=== PATIENT | female | born 1995 | race Caucasian/White ===

== ENCOUNTER 2022-11-24 19:07 | Day surgery (SDC) | payer OTHER, SELFPAY ==
[2022-11-24] VITALS (16 sets, daily range): BP systolic 109–142; BP diastolic 58–91; PULSE 69–99; RESP 16; TEMP 37.3; O2SAT 97–100; BMI 36.6
[2022-11-24 20:00] LABS: Add Manual Diff / Slide Review NO; Basophils Absolute Auto 100 /uL (0-100); Basophils Percent Auto 1.5 % (0-2); Eosinophils Absolute Auto 200 /uL (0-450); Eosinophils Percent Auto 2.9 % (2-4); Hematocrit 30.2 % (36-46); Hemoglobin 10.1 g/dL (12.0-16.0); Lymphocytes Absolute Auto 2600 /uL (1100-4500); Lymphocytes Percent Auto 30.4 % (25-40); Mean Corpuscular HGB Conc 33.5 % (30-36); Mean Corpuscular Hemoglobin 25.1 PG (26-34); Monocytes Absolute Auto 500 /uL (0-900); Monocytes Percent Auto 5.9 % (3-14); Neutrophils Absolute Auto 5100 /uL (1500-7000); Neutrophils Percent Auto 59.3 % (50-75); Platelet Count 387 X10^3/uL (150-400); Red Blood Cell Count 4.02 X10^6/uL (4.0-5.2); Red Cell Distribution Width 16.9 % (11.6-14.8); White Blood Cell Count 8.5 X10^3/uL (4.5-11.0)
[2022-11-24 20:23] LABS: BUN Creatinine Ratio 19.7 (6-22); Blood Urea Nitrogen 12 mg/dL (7-17); Calcium 8.5 mg/dL (8.4-10.2); Carbon Dioxide 24 mmol/L (22-32); Chloride 105 mmol/L (98-107); Estimated Glomerular Filt Rate > 60 mL/min (>60); Glucose 87 mg/dL (70-100); HEMOLYSIS < 15 (0-50); Potassium 3.7 mmol/L (3.4-5.1); Sodium 138 mmol/L (137-145)
[2022-11-24 20:44] LABS: Bacteria Urine None Seen; Culture Indicated Urine Cult Not Indicated; Mucus Urine 1+ (Negative); RBC Urine >100/HPF (0-5/HPF); Squamous Epithelial Cell Urine 1-5 /HPF (0-5/HPF); WBC Urine 0-1/HPF (0-5/HPF)
--- NOTE | 2022-11-24 21:06 | ED.PREGNANCY ---
HPI - <Darryn Duncan DO - Last Filed: 11/26/22 13:51> General Chief complaint: Vaginal Bleeding Stated complaint: miscarriage on , severe pain, clots, ble Time Seen by Provider: 11/24/22 19:20 Source: patient Mode of arrival: Ambulatory History of Present Illness HPI Narrative: 27-year-old female nonsmoker is a and presents with pelvic cramping and heavy bleeding over the course of the day. She had presented to her regularly scheduled 11 week appointment on November 14 and found out that she had an intrauterine demise at about the 7 week mnaoj. At that time she was given misoprostol to help pass products and was unsuccessful after 1 dose and got a repeat dose on November 20. She thought she had probably passed some products of conception on November 21 and then over the course of the day today she is been bleeding through a pad per hour. She last had food and clear liquids at 6:00 p.m. Related Data Home Medications Medication Instructions Recorded Confirmed oxycodone 5 mg tablet 2.5 mg 11/25/22 Allergies Allergy/AdvReac Type Severity Reaction Status Date / Time cephalexin [From Keflex] Allergy Intermediate Hives Verified 11/25/22 10:21 Review of Systems <DO Sea Payton Last Filed: 11/26/22 13:51> Review of Systems Narrative: GENERAL: Denies chills, fatigue, malaise, fever, sweats. HEENT: Denies sinus pain, ear pain, sore throat, difficulty swallowing, dizziness. RESPIRATORY: Denies dyspnea, cough, wheezing, hemoptysis, sputum. CARDIOVASCULAR: Denies chest pain, palpitations, orthopnea, edema, GASTROINTESTINAL: Denies nausea, vomiting, abdominal pain, diarrhea, constipation, melena. : See HPI MUSCULOSKELETAL: denies weakness, joint pain, or bony pain SKIN: Denies rash, skin lesions, or other NEUROLOGIC: Denies weakness, headache, numbness, change in speech, confusion, seizures, incoordination. PSYCHIATRIC: No concerning psychosocial issues. 12 point review of systems is negative except for those stated above Exam <DO Sea Payton Last Filed: 11/26/22 13:51> Narrative Exam Narrative: GENERAL: [27] year old patient appears stated age. Well-developed patient, in mild distress. HEAD: Atraumatic. Normocephalic. EYES: Pupils equal round and reactive. Extraocular motions intact. No scleral icterus. No injection or drainage. ENT: Nose without bleeding, purulent drainage. Throat without erythema, tonsillar hypertrophy or exudate. Airway patent. NECK: Trachea midline. Non tender CARDIOVASCULAR: Regular rate and rhythm without murmurs, gallops, or rubs. RESPIRATORY: Clear to auscultation. Breath sounds equal bilaterally. No wheezes, rales, or rhonchi. GASTROINTESTINAL: Abdomen soft, suprapubic tenderness, nondistended. EXTREMITIES: No edema or joint tenderness. BACK: Nontender without deformity or crepitance. No flank tenderness. NEURO: AOx3. SKIN: No rash or erythema of visible areas Initial Vital Signs Initial Vital Signs: Vital Signs Temperature 99.2 F 11/24/22 19:15 Pulse Rate 99 H 11/24/22 19:15 Respiratory Rate 16 11/24/22 19:15 Blood Pressure 125/64 11/24/22 19:15 Pulse Oximetry 100 11/24/22 19:15 Oxygen Delivery Method Room Air 11/24/22 19:15 <Anam Sharma DO - Last Filed: 11/25/22 09:52> Initial Vital Signs Initial Vital Signs: Vital Signs Temperature 99.2 F 11/24/22 19:15 Pulse Rate 99 H 11/24/22 19:15 Respiratory Rate 16 11/24/22 19:15 Blood Pressure 125/64 11/24/22 19:15 Pulse Oximetry 100 11/24/22 19:15 Oxygen Delivery Method Room Air 11/24/22 19:15 Course <Darryn Duncan, DO - Last Filed: 11/26/22 13:51> Orders Ordered: Discontinued Medications Albuterol (Albuterol 2.5 Mg/3 Ml Neb (Adult)) 2.5 mg INH NOW PRN PRN Reason: Coughing, Wheezing, Dyspnea Hydromorphone HCl (Hydromorphone 2 Mg Inj) 0 mg IV Q5M PRN PRN Reason: Pain, Moderate (4-6) Sodium Chloride (Normal Saline 0.9%) 1,000 mls @ 100 mls/hr IV CONT RUPALI Lactated Ringer's (Lactated Ringers) 1,000 mls @ 100 mls/hr IV CONT RUPALI Last Infusion: 11/25/22 12:41 Dose: 0 mls/hr Documented By: Admin: 11/25/22 10:35 Dose: 100 mls/hr Documented By: Clindamycin Phosphate (Cleocin) 600 mg in 50 mls @ 50 mls/hr IV NOW ONE Stop: 11/25/22 12:27 Last Infusion: 11/25/22 11:15 Dose: 0 mls/hr Documented By: Admin: 11/25/22 11:10 Dose: 50 mls/hr Documented By: EDER Ketorolac Tromethamine (Ketorolac 30 Mg/Ml Vial) 30 mg IV NOW ONE Stop: 11/25/22 11:37 Last Admin: 11/25/22 11:41 Dose: 30 mg Documented By: LELA Meperidine HCl (Meperidine 50 Mg/Ml Inj) 25 mg IV PACUNOW PRN PRN Reason: Moderate pain or shivering Metoclopramide HCl (Metoclopramide 10 Mg/2 Ml Inj) 10 mg IV NOW PRN PRN Reason: Nausea And Vomiting Ondansetron HCl (Ondansetron 4 Mg/2 Ml Inj) 4 mg IV NOW PRN PRN Reason: Nausea And Vomiting Oxycodone HCl (Oxycodone Ir 5 Mg Tablet) 5 mg PO PACUNOW PRN PRN Reason: Mild or moderate pain Last Admin: 11/25/22 12:06 Dose: 5 mg Documented By: LELA Reevaluation(s) Reevaluation #1: Pelvic exam performed, patient prior states that she still feels bleeding and cramping, perhaps it is slowed a bit but still certainly active. This exam is performed with patient permission and female nursing customer development representative at the bedside. Slow but constant dark blood via closed cervical os noted with clots Consultations Consultation #1: discussed with local beater operator, recommend transfer for D/C due to our inability to use OR Consultation #2: call to [facility]. Broach Trouble Shooter of Dr. Marte took info to relay to surgeon Time: 22:55 Vital Signs Vital signs: Vital Signs - 8 hr 11/25/22 02:00 11/25/22 02:30 11/25/22 03:52 Pulse Rate 74 73 Respiratory Rate Blood Pressure 109/67 Pulse Oximetry 95 95 Oxygen Delivery Method 11/25/22 03:52 11/25/22 04:00 11/25/22 04:00 Pulse Rate 74 69 Respiratory Rate Blood Pressure 102/58 L Pulse Oximetry 96 94 Oxygen Delivery Method 11/25/22 04:30 11/25/22 05:00 11/25/22 05:30 Pulse Rate 64 67 62 Respiratory Rate Blood Pressure Pulse Oximetry 95 98 95 Oxygen Delivery Method 11/25/22 06:00 11/25/22 06:00 11/25/22 06:30 Pulse Rate 69 62 Respiratory Rate Blood Pressure 116/57 L Pulse Oximetry 95 96 Oxygen Delivery Method 11/25/22 07:00 11/25/22 07:30 11/25/22 08:01 Pulse Rate 68 66 92 H Respiratory Rate 18 Blood Pressure 116/57 L Pulse Oximetry 95 96 93 Oxygen Delivery Method Room Air <Anam Sharma DO - Last Filed: 11/25/22 09:52> Orders Ordered: Discontinued Medications Albuterol (Albuterol 2.5 Mg/3 Ml Neb (Adult)) 2.5 mg INH NOW PRN PRN Reason: Coughing, Wheezing, Dyspnea Hydromorphone HCl (Hydromorphone 2 Mg Inj) 0 mg IV Q5M PRN PRN Reason: Pain, Moderate (4-6) Sodium Chloride (Normal Saline 0.9%) 1,000 mls @ 100 mls/hr IV CONT RUPALI Lactated Ringer's (Lactated Ringers) 1,000 mls @ 100 mls/hr IV CONT RUPLAI Last Infusion: 11/25/22 12:41 Dose: 0 mls/hr Documented By: Admin: 11/25/22 10:35 Dose: 100 mls/hr Documented By: MS Clindamycin Phosphate (Cleocin) 600 mg in 50 mls @ 50 mls/hr IV NOW ONE Stop: 11/25/22 12:27 Last Infusion: 11/25/22 11:15 Dose: 0 mls/hr Documented By: Admin: 11/25/22 11:10 Dose: 50 mls/hr Documented By: BL Ketorolac Tromethamine (Ketorolac 30 Mg/Ml Vial) 30 mg IV NOW ONE Stop: 11/25/22 11:37 Last Admin: 11/25/22 11:41 Dose: 30 mg Documented By: AK Meperidine HCl (Meperidine 50 Mg/Ml Inj) 25 mg IV PACUNOW PRN PRN Reason: Moderate pain or shivering Metoclopramide HCl (Metoclopramide 10 Mg/2 Ml Inj) 10 mg IV NOW PRN PRN Reason: Nausea And Vomiting Ondansetron HCl (Ondansetron 4 Mg/2 Ml Inj) 4 mg IV NOW PRN PRN Reason: Nausea And Vomiting Oxycodone HCl (Oxycodone Ir 5 Mg Tablet) 5 mg PO PACUNOW PRN PRN Reason: Mild or moderate pain Last Admin: 11/25/22 12:06 Dose: 5 mg Documented By: LELA Vital Signs Vital signs: Vital Signs - 8 hr 11/25/22 02:00 11/25/22 02:30 11/25/22 03:52 Pulse Rate 74 73 Respiratory Rate Blood Pressure 109/67 Pulse Oximetry 95 95 Oxygen Delivery Method 11/25/22 03:52 11/25/22 04:00 11/25/22 04:00 Pulse Rate 74 69 Respiratory Rate Blood Pressure 102/58 L Pulse Oximetry 96 94 Oxygen Delivery Method 11/25/22 04:30 11/25/22 05:00 11/25/22 05:30 Pulse Rate 64 67 62 Respiratory Rate Blood Pressure Pulse Oximetry 95 98 95 Oxygen Delivery Method 11/25/22 06:00 11/25/22 06:00 11/25/22 06:30 Pulse Rate 69 62 Respiratory Rate Blood Pressure 116/57 L Pulse Oximetry 95 96 Oxygen Delivery Method 11/25/22 07:00 11/25/22 07:30 11/25/22 08:01 Pulse Rate 68 66 92 H Respiratory Rate 18 Blood Pressure 116/57 L Pulse Oximetry 95 96 93 Oxygen Delivery Method Room Air MDM - OB/Uterine Contractions <Darryn Duncan DO - Last Filed: 11/26/22 13:51> Lab Data 11/25/22 07:45 11/24/22 19:45 Labs: Lab Results 11/24/22 11/24/22 11/24/22 Range/Units 19:45 19:45 19:45 WBC 8.5 (4.5-11.0) X10^3/uL RBC 4.02 (4.0-5.2) X10^6/uL Hgb 10.1 L (12.0-16.0) g/dL Hct 30.2 L (36-46) % MCV 75.0 L (80-100) fL MCH 25.1 L (26-34) PG MCHC 33.5 (30-36) % RDW 16.9 H (11.6-14.8) % Plt Count 387 (150-400) X10^3/uL Neut % (Auto) 59.3 (50-75) % Lymph % (Auto) 30.4 (25-40) % [place] % (Auto) 5.9 (3-14) % Eos % (Auto) 2.9 (2-4) % Baso % (Auto) 1.5 (0-2) % Neut # (Auto) 5100 (1263-9068) /uL Lymph # (Auto) 2600 (4095-1520) /uL [place] # (Auto) 500 (0-900) /uL Eos # (Auto) 200 (0-450) /uL Baso # (Auto) 100 (0-100) /uL Sodium (137-145) mmol/L Potassium (3.4-5.1) mmol/L Chloride (98-107) mmol/L Carbon Dioxide (22-32) mmol/L BUN (7-17) mg/dL Creatinine (0.52-1.04) mg/dL Estimated GFR (>60) mL/min BUN/Creatinine Ratio (6-22) Glucose (70-100) mg/dL Calcium (8.4-10.2) mg/dL HCG, Quant 9161.0 mIU/mL Urine RBC (0-5/HPF) Urine WBC (0-5/HPF) Ur Squamous Epith Cells (0-5/HPF) Urine Bacteria (None) Urine Mucus (Negative) Ur Culture Indicated? SARS-CoV-2 (PCR) (Negative) Blood Type AB Positive Antibody Screen 11/24/22 11/24/22 11/24/22 Range/Units 19:45 20:16 22:45 WBC (4.5-11.0) X10^3/uL RBC (4.0-5.2) X10^6/uL Hgb 9.4 L (12.0-16.0) g/dL Hct 28.2 L (36-46) % MCV (80-100) fL MCH (26-34) PG MCHC (30-36) % RDW (11.6-14.8) % Plt Count (150-400) X10^3/uL Neut % (Auto) (50-75) % Lymph % (Auto) (25-40) % [place] % (Auto) (3-14) % Eos % (Auto) (2-4) % Baso % (Auto) (0-2) % Neut # (Auto) (1786-5461) /uL Lymph # (Auto) (8263-1753) /uL [place] # (Auto) (0-900) /uL Eos # (Auto) (0-450) /uL Baso # (Auto) (0-100) /uL Sodium 138 (137-145) mmol/L Potassium 3.7 (3.4-5.1) mmol/L Chloride 105 (98-107) mmol/L Carbon Dioxide 24 (22-32) mmol/L BUN 12 (7-17) mg/dL Creatinine 0.61 (0.52-1.04) mg/dL Estimated GFR > 60 (>60) mL/min BUN/Creatinine Ratio 19.7 (6-22) Glucose 87 (70-100) mg/dL Calcium 8.5 (8.4-10.2) mg/dL HCG, Quant mIU/mL Urine RBC >100/hpf H (0-5/HPF) Urine WBC 0-1/hpf (0-5/HPF) Ur Squamous Epith Cells 1-5 /hpf (0-5/HPF) Urine Bacteria None seen (None) Urine Mucus 1+ H (Negative) Ur Culture Indicated? Cult not indicated SARS-CoV-2 (PCR) (Negative) Blood Type Antibody Screen 11/24/22 11/25/22 11/25/22 Range/Units 22:45 07:45 08:56 WBC (4.5-11.0) X10^3/uL RBC (4.0-5.2) X10^6/uL Hgb 8.9 L (12.0-16.0) g/dL Hct 27.1 L (36-46) % MCV (80-100) fL MCH (26-34) PG MCHC (30-36) % RDW (11.6-14.8) % Plt Count (150-400) X10^3/uL Neut % (Auto) (50-75) % Lymph % (Auto) (25-40) % [place] % (Auto) (3-14) % Eos % (Auto) (2-4) % Baso % (Auto) (0-2) % Neut # (Auto) (4332-8921) /uL Lymph # (Auto) (9329-0729) /uL [place] # (Auto) (0-900) /uL Eos # (Auto) (0-450) /uL Baso # (Auto) (0-100) /uL Sodium (137-145) mmol/L Potassium (3.4-5.1) mmol/L Chloride (98-107) mmol/L Carbon Dioxide (22-32) mmol/L BUN (7-17) mg/dL Creatinine (0.52-1.04) mg/dL Estimated GFR (>60) mL/min BUN/Creatinine Ratio (6-22) Glucose (70-100) mg/dL Calcium (8.4-10.2) mg/dL HCG, Quant mIU/mL Urine RBC (0-5/HPF) Urine WBC (0-5/HPF) Ur Squamous Epith Cells (0-5/HPF) Urine Bacteria (None) Urine Mucus (Negative) Ur Culture Indicated? SARS-CoV-2 (PCR) Negative (Negative) Blood Type AB Positive Antibody Screen Negative Urine Dip Bedside Urine Glucose Negative Bedside Urine Bilirubin - Negative Bedside Urine Ketone - Negative Urine Specific [place] 1.030 Bedside Urine Occult Blood +++ Bedside Urine pH 6.0 Bedside Urine Protein + 30 Bedside Urine Urobilinogen - Negative Bedside Urine Nitrite - Negative Bedside Urine Leukocytes - Negative Esterase <Anam Sharma, DO - Last Filed: 11/25/22 09:52> Lab Data Labs: Lab Results 11/24/22 11/24/22 11/24/22 Range/Units 19:45 19:45 19:45 WBC 8.5 (4.5-11.0) X10^3/uL RBC 4.02 (4.0-5.2) X10^6/uL Hgb 10.1 L (12.0-16.0) g/dL Hct 30.2 L (36-46) % MCV 75.0 L (80-100) fL MCH 25.1 L (26-34) PG MCHC 33.5 (30-36) % RDW 16.9 H (11.6-14.8) % Plt Count 387 (150-400) X10^3/uL Neut % (Auto) 59.3 (50-75) % Lymph % (Auto) 30.4 (25-40) % [place] % (Auto) 5.9 (3-14) % Eos % (Auto) 2.9 (2-4) % Baso % (Auto) 1.5 (0-2) % Neut # (Auto) 5100 (2758-7118) /uL Lymph # (Auto) 2600 (1946-2003) /uL [place] # (Auto) 500 (0-900) /uL Eos # (Auto) 200 (0-450) /uL Baso # (Auto) 100 (0-100) /uL Sodium (137-145) mmol/L Potassium (3.4-5.1) mmol/L Chloride (98-107) mmol/L Carbon Dioxide (22-32) mmol/L BUN (7-17) mg/dL Creatinine (0.52-1.04) mg/dL Estimated GFR (>60) mL/min BUN/Creatinine Ratio (6-22) Glucose (70-100) mg/dL Calcium (8.4-10.2) mg/dL HCG, Quant 9161.0 mIU/mL Urine RBC (0-5/HPF) Urine WBC (0-5/HPF) Ur Squamous Epith Cells (0-5/HPF) Urine Bacteria (None) Urine Mucus (Negative) Ur Culture Indicated? SARS-CoV-2 (PCR) (Negative) Blood Type AB Positive Antibody Screen 11/24/22 11/24/22 11/24/22 Range/Units 19:45 20:16 22:45 WBC (4.5-11.0) X10^3/uL RBC (4.0-5.2) X10^6/uL Hgb 9.4 L (12.0-16.0) g/dL Hct 28.2 L (36-46) % MCV (80-100) fL MCH (26-34) PG MCHC (30-36) % RDW (11.6-14.8) % Plt Count (150-400) X10^3/uL Neut % (Auto) (50-75) % Lymph % (Auto) (25-40) % [place] % (Auto) (3-14) % Eos % (Auto) (2-4) % Baso % (Auto) (0-2) % Neut # (Auto) (0058-3515) /uL Lymph # (Auto) (6421-1630) /uL [place] # (Auto) (0-900) /uL Eos # (Auto) (0-450) /uL Baso # (Auto) (0-100) /uL Sodium 138 (137-145) mmol/L Potassium 3.7 (3.4-5.1) mmol/L Chloride 105 (98-107) mmol/L Carbon Dioxide 24 (22-32) mmol/L BUN 12 (7-17) mg/dL Creatinine 0.61 (0.52-1.04) mg/dL Estimated GFR > 60 (>60) mL/min BUN/Creatinine Ratio 19.7 (6-22) Glucose 87 (70-100) mg/dL Calcium 8.5 (8.4-10.2) mg/dL HCG, Quant mIU/mL Urine RBC >100/hpf H (0-5/HPF) Urine WBC 0-1/hpf (0-5/HPF) Ur Squamous Epith Cells 1-5 /hpf (0-5/HPF) Urine Bacteria None seen (None) Urine Mucus 1+ H (Negative) Ur Culture Indicated? Cult not indicated SARS-CoV-2 (PCR) (Negative) Blood Type Antibody Screen 11/24/22 11/25/22 11/25/22 Range/Units 22:45 07:45 08:56 WBC (4.5-11.0) X10^3/uL RBC (4.0-5.2) X10^6/uL Hgb 8.9 L (12.0-16.0) g/dL Hct 27.1 L (36-46) % MCV (80-100) fL MCH (26-34) PG MCHC (30-36) % RDW (11.6-14.8) % Plt Count (150-400) X10^3/uL Neut % (Auto) (50-75) % Lymph % (Auto) (25-40) % [place] % (Auto) (3-14) % Eos % (Auto) (2-4) % Baso % (Auto) (0-2) % Neut # (Auto) (9224-6447) /uL Lymph # (Auto) (3917-3992) /uL [place] # (Auto) (0-900) /uL Eos # (Auto) (0-450) /uL Baso # (Auto) (0-100) /uL Sodium (137-145) mmol/L Potassium (3.4-5.1) mmol/L Chloride (98-107) mmol/L Carbon Dioxide (22-32) mmol/L BUN (7-17) mg/dL Creatinine (0.52-1.04) mg/dL Estimated GFR (>60) mL/min BUN/Creatinine Ratio (6-22) Glucose (70-100) mg/dL Calcium (8.4-10.2) mg/dL HCG, Quant mIU/mL Urine RBC (0-5/HPF) Urine WBC (0-5/HPF) Ur Squamous Epith Cells (0-5/HPF) Urine Bacteria (None) Urine Mucus (Negative) Ur Culture Indicated? SARS-CoV-2 (PCR) Negative (Negative) Blood Type AB Positive Antibody Screen Negative Urine Dip Bedside Urine Glucose Negative Bedside Urine Bilirubin - Negative Bedside Urine Ketone - Negative Urine Specific [place] 1.030 Bedside Urine Occult Blood +++ Bedside Urine pH 6.0 Bedside Urine Protein + 30 Bedside Urine Urobilinogen - Negative Bedside Urine Nitrite - Negative Bedside Urine Leukocytes - Negative Esterase MDM Narrative Medical decision making narrative: Dr sharma: Received turned over. We patient's history and physical and introduced myself to the patient and performed my own independent exam. She is had a steadily declining hemoglobin and hematocrit. A type and screen was ordered however she is not at the point that would require transfusion although we will continue to monitor this. She is Rh positive. Ultrasound does show retained products of conception. Initially there was somewhat of a delay because of issues with the operating room at this facility. We were initially under the impression that the patient would need to be transferred have a D&C performed. Upon assumption of care by myself it was clarified that the patient can have a procedure here at this facility. I did discuss the case with Dr. Angel on-call for house registry rn. Evaluated the patient in the emergency department. I did discuss the findings of the ultrasound in the blood work with the patient. I informed her that we would be able to safely take care of her here at this facility. She expressed understanding and agreement with plan. We will admit for further evaluation and treatment. Discharge Plan Departure Patient Disposition: Admitted to Surgery Clinical Impression: Incomplete miscarriage, Anemia
--- NOTE | 2022-11-24 21:09 | DI.US.S_ITS ---
PROCEDURE: US PELVIC COMPLETE INDICATIONS: HEAVY BLEEDING, CRAMPING; RECENT SAB TECHNIQUE: Real-time scanning was performed of the pelvic organs, with image documentation. Additional endovaginal scanning was necessary due to incomplete visualization of the adnexal and endometrial structures by transabdominal scanning. COMPARISON: None. FINDINGS: Uterus: Uterus is anteverted and measures 9.8 x 5.1 x 6.6 cm. The endometrium is thickened and heterogeneous in appearance, measuring up to 2.3 cm. There is internal vascularity on color Doppler interrogation. There is a heterogeneous masslike filling defect within the cervix without internal vascularity on color Doppler interrogation. Ovaries: The right ovary measures 1.5 x 2.7 x 1.2 cm cm, with a calculated ovarian volume of 2.4 cc. The left ovary measures 1.8 x 2.9 x 2.2 cm, with a calculated ovarian volume of 6.0 cc. There is an anechoic simple cyst within the left ovary measuring up to 2.3 cm suggestive of a follicular cyst. No adnexal masses. Other: No pathologic free abdominal or pelvic fluid. IMPRESSION: 1. Heterogeneous thickening of the endometrium with internal vascularity highly suspicious for retained products of conception. 2. Heterogeneous filling defect within the cervix without internal vascularity. The findings are suggestive of clot but are nonspecific. Recommend correlation with clinical exam. We strive to produce accurate, complete, and clear reports of imaging services. To assist us in improving patient care, this report was composed using standard report templates and voice recognition software. Therefore, it may contain abnormal punctuation, insertions and/or omissions. Occasional wrong-word or sound-alike substitutions may occur. Though we review the report and make efforts to correct it, we do recommend that the report be read carefully in proper context to recognize any text inaccuracies. Dictated by: Nicholas Sotelo M.D. on 11/24/2022 at 21:58 Approved by: Nicholas Sotelo M.D. on 11/24/2022 at 22:03
[2022-11-24 22:58] LABS: Hematocrit 28.2 % (36-46); Hemoglobin 9.4 g/dL (12.0-16.0)
[2022-11-24 23:30] LABS: COVID19 -Nasal RAPID Negative (Negative)
[2022-11-25] VITALS (28 sets, daily range): BP systolic 100–136; BP diastolic 41–78; PULSE 57–92; RESP 9–22; TEMP 36.2–36.3; O2SAT 93–99; BMI 36.6
--- NOTE | 2022-11-25 | PATH_ITS ---
[facility] Accession Number: [id number] No. of containers..01 Tissue . 01 Material submitted: . product of conception - PRODUCTS OF CONCEPTION . 01 Clinical history: . MISCARRIAGE ON MORN, SEVERE PAIN, CLOTS, BLE... . 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 Gestational endometrium, implantation site changes, and decidua. Negative for malignancy. MRV 12/04/2022 1835 Local . 01 Comment: The degenerated chorionic villi are abnormally enlarged and hydropic with complete cistern formation and rare foci of trophoblastic hyperplasia. An *immunostain to p57 is performed on block A1, with the control stained appropriately, and is negative on the cytotrophoblasts and stromal cells. 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 . * This test was developed and its performance characteristics determined by [employer]. It has not been cleared or approved by the U.S. Food and Drug Administration. The FDA has determined that such clearance or approval is not necessary. This test is used for clinical purposes. It should not be regarded as investigational or for research. . 01 Electronically signed: . Mariam Syed MD, Pathologist NPI- [id number] . 01 Gross description: . The specimen is received in formalin labeled with the patient's name, , and products of conception, and consists multiple rider spongy soft tissue fragments admixed with hemorrhagic material aggregating to 7.8 x 6.9 x 2.3 cm. No tissue is grossly identified. Supply Chain Director sections are submitted in cassettes A1-A2. ([id number]) Additional senior sales representative sections are submitted in cassettes A3-A6. ([id number]) /NILAM 12/03/2022 1820 Local . 01 Pathologist provided ICD-10: O03.80 . 01 CPT . 109075, L06943 Specimen Comment: A courtesy copy of this report has been sent to [phone] Performed at: 01 [facility] [address] [place] [address], [place], [place] [id number] MD Nicholas Vinson MD Phone: [phone]
--- NOTE | 2022-11-25 05:59 | PC.NURSE ---
Waiting on Ross to call back to see if procedure can be done out Pt this AM
[2022-11-25 07:53] LABS: Hematocrit 27.1 % (36-46); Hemoglobin 8.9 g/dL (12.0-16.0)
--- NOTE | 2022-11-25 08:25 | PC.NURSE ---
Wild hernandez @[facility] Stephanie, called @ [phone] wanted to verify if pt. was able to arrive POV, confirmed with pt. she is able to and has a friend with her bedside who can drive her. Confirmed with Stephanie, notified we are waiting update on our OR situation before we d/c pt. and will call with an update. Stephanie stated that if pt. is having procedure at [facility] will need to arrive by 1300 through main entrance and head to day surgery.
--- NOTE | 2022-11-25 09:57 | PM.PREOP ---
Pre-operative Note COVID-19 Criteria for continued procedure: Possibility delay results in more complex future surgery or treatment Interval Note History & Physical reviewed/Exam performed by Physician: Yes Changes to H&P: No
--- NOTE | 2022-11-25 09:59 | PM.GYNHP.1 ---
History of Present Illness History of Present Illness Reason for admission: incomplete Narrative: Jen Hernandez is a 27 year old female TAB 1 who on her 1st OB visit was found to have a missed A/B. She was given medication to try to complete the miscarriage but the patient has had heavy bleeding that continued and arrived in the emergency room for evaluation. [facility] Social History Smoking Status: Never smoker Comment: Patient denies any significant medical history Review of Systems Review of Systems Narrative: Patient denies headaches. She denies fevers. She is had heavy bleeding with clots. No problems urinating. No problems with constipation or diarrhea. Exam Vital Signs (past 8 hours): - 11/25/22 02:00 11/25/22 02:30 11/25/22 03:52 Pulse Rate 74 73 Respiratory Rate Blood Pressure 109/67 Pulse Oximetry 95 95 Oxygen Delivery Method 11/25/22 03:52 11/25/22 04:00 11/25/22 04:00 Pulse Rate 74 69 Respiratory Rate Blood Pressure 102/58 L Pulse Oximetry 96 94 Oxygen Delivery Method 11/25/22 04:30 11/25/22 05:00 11/25/22 05:30 Pulse Rate 64 67 62 Respiratory Rate Blood Pressure Pulse Oximetry 95 98 95 Oxygen Delivery Method 11/25/22 06:00 11/25/22 06:00 11/25/22 06:30 Pulse Rate 69 62 Respiratory Rate Blood Pressure 116/57 L Pulse Oximetry 95 96 Oxygen Delivery Method 11/25/22 07:00 11/25/22 07:30 11/25/22 08:01 Pulse Rate 68 66 92 H Respiratory Rate 18 Blood Pressure 116/57 L Pulse Oximetry 95 96 93 Oxygen Delivery Method Room Air Oxygen Delivery Method Room Air Narrative Exam Narrative: HEENT exam within normal limits. Lungs are clear to auscultation percussion. Heart is regular rate and rhythm no S3-S4 or murmurs. No thyromegaly. Abdomen is soft, nontender with no palpable organomegaly. Pelvic exam not performed. Extremities without edema and nontender. Objective Imaging US - abdomen: Radiologist's impression: Uterus:? Uterus is anteverted and measures 9.8 x 5.1 x 6.6 cm.? The endometrium is thickened and heterogeneous in appearance, measuring up to 2.3 cm.? There is internal vascularity on color Doppler interrogation.? There is a heterogeneous masslike filling defect within the cervix without internal vascularity on color Doppler interrogation.? ? Ovaries:? The right ovary measures 1.5 x 2.7 x 1.2 cm cm, with a calculated ovarian volume of 2.4 cc. The left ovary measures 1.8 x 2.9 x 2.2 cm, with a calculated ovarian volume of 6.0 cc.? There is an anechoic simple cyst within the left ovary measuring up to 2.3 cm suggestive of a follicular cyst.? No adnexal masses. ? Other:? No pathologic free abdominal or pelvic fluid. ? ? IMPRESSION:? ? 1. Heterogeneous thickening of the endometrium with internal vascularity highly suspicious for retained products of conception. ? 2. Heterogeneous filling defect within the cervix without internal vascularity.? The findings are suggestive of clot but are nonspecific.? Recommend correlation with clinical exam. ? ? Labs 11/25/22 07:45 11/24/22 19:45 Labs: Laboratory Results - last 24 hr 11/24/22 11/24/22 11/24/22 19:45 19:45 19:45 WBC 8.5 RBC 4.02 Hgb 10.1 L Hct 30.2 L MCV 75.0 L MCH 25.1 L MCHC 33.5 RDW 16.9 H Plt Count 387 Neut % (Auto) 59.3 Lymph % (Auto) 30.4 [place] % (Auto) 5.9 Eos % (Auto) 2.9 Baso % (Auto) 1.5 Neut # (Auto) 5100 Lymph # (Auto) 2600 [place] # (Auto) 500 Eos # (Auto) 200 Baso # (Auto) 100 Sodium Potassium Chloride Carbon Dioxide BUN Creatinine Estimated GFR BUN/Creatinine Ratio Glucose Calcium HCG, Quant 9161.0 Urine RBC Urine WBC Ur Squamous Epith Cells Urine Bacteria Urine Mucus Ur Culture Indicated? SARS-CoV-2 (PCR) Blood Type AB Positive Antibody Screen 11/24/22 11/24/22 11/24/22 19:45 20:16 22:45 WBC RBC Hgb 9.4 L Hct 28.2 L MCV MCH MCHC RDW Plt Count Neut % (Auto) Lymph % (Auto) [place] % (Auto) Eos % (Auto) Baso % (Auto) Neut # (Auto) Lymph # (Auto) [place] # (Auto) Eos # (Auto) Baso # (Auto) Sodium 138 Potassium 3.7 Chloride 105 Carbon Dioxide 24 BUN 12 Creatinine 0.61 Estimated GFR > 60 BUN/Creatinine Ratio 19.7 Glucose 87 Calcium 8.5 HCG, Quant Urine RBC >100/hpf H Urine WBC 0-1/hpf Ur Squamous Epith Cells 1-5 /hpf Urine Bacteria None seen Urine Mucus 1+ H Ur Culture Indicated? Cult not indicated SARS-CoV-2 (PCR) Blood Type Antibody Screen 11/24/22 11/25/22 11/25/22 22:45 07:45 08:56 WBC RBC Hgb 8.9 L Hct 27.1 L MCV MCH MCHC RDW Plt Count Neut % (Auto) Lymph % (Auto) [place] % (Auto) Eos % (Auto) Baso % (Auto) Neut # (Auto) Lymph # (Auto) [place] # (Auto) Eos # (Auto) Baso # (Auto) Sodium Potassium Chloride Carbon Dioxide BUN Creatinine Estimated GFR BUN/Creatinine Ratio Glucose Calcium HCG, Quant Urine RBC Urine WBC Ur Squamous Epith Cells Urine Bacteria Urine Mucus Ur Culture Indicated? SARS-CoV-2 (PCR) Negative Blood Type AB Positive Antibody Screen Negative Assessment & Plan Assessment and plan (1) Incomplete miscarriage: Status: Acute (2) Anemia: Status: Acute Assessment & Plan narrative: Patient was given options of continue to monitor for her to complete her , medication to complete her , suction D&C. Patient it would like to proceed with suction D&C. Consent form was reviewed with the patient. Risk of reaction to medication or anesthesia, infection, perforation of the uterus that could require additional surgery, bleeding enough to require blood transfusion. Consent form signed and questions answered. Time Spent With Patient Time with patient: less than 30 minutes Critical Care time: I spent a total of [] minutes of critical care time on this patient's care today; this time is exclusive of procedural time.
[2022-11-25] MEDS: LACTATED RINGERS 1,000 ML 100 ML IV (10:35)
[2022-11-25] MEDS: CLINDAMYCIN 600 MG/50 ML PIGGYBACK 50 MG IV (11:10)
--- NOTE | 2022-11-25 11:31 | PM.OP.1 ---
Operative Date/Time/Diagnoses Date of procedure: 11/25/22 Time of procedure: 11:31 Pre-op diagnosis: Incomplete miscarriage Post-op diagnosis: same Procedure & Clinicians Procedure: Suction D&C Same procedure as scheduled: Yes Indications: Retained products of conception Surgeon: Mary Angel Click Yes if Unassisted: Yes Anesthesia Type: General Operative Notes Findings: Moderate amount of retained products of conception. Normal exam under anesthesia. Closure Type: not applicable Specimen(s): other (Uterine contents) Estimated Blood Loss (mL): 20 Blood products transfused: none Procedure in detail: Patient was brought to the operating room where she underwent general anesthesia. She was placed in low Yellofin stirrups and prepped and draped in the usual sterile fashion. 100 mg of clindamycin in prior to beginning the case. A check system was reviewed with the staff in the room prior to beginning the case. A single-tooth tenaculum was placed on the anterior lip of the cervix after removing blood clots from the vagina. The 7 suction catheter was placed in the the uterus to the fundus and curetting with suction was performed. A sharp curette was placed and then the suction replaced. There was no active bleeding after the procedure. Patient went to recovery room in good condition. Counts of instruments and sponges were correct Complications: none Post-operative Condition: stable Disposition: same day surgery Plan for aftercare: Home when awake and stable
--- NOTE | 2022-11-25 11:35 | SUR.OPER ---
Lithotomy on padded OR bed, head on pillow, arms secured on padded arm boards at <90 degrees abduction. Legs secured in padded yellow fins stirrups.
[2022-11-25] MEDS: KETOROLAC 30 MG/ML VIAL IV (11:41)
[2022-11-25] MEDS: OXYCODONE IR 5 MG TABLET PO (12:06)
== END 2022-11-25 13:08 | disposition home or self-care (01) ==
LOC: ED 11-25 08:50 → AC 11-25 09:52 → OR 11-26 08:28
PROVIDERS: Emergency Medicine; Emergency Provider Emergency Medicine; Referring Provider Emergency Medicine; Visit Provider Specialist
PROC: (CPT 58120; principal; 2022-11-25 11:30)
DX: O03.4 Incomplete spontaneous abortion without complication (principal); Z20.822 Contact with and (suspected) exposure to COVID-19; D64.9 Anemia, unspecified
CPT/HCPCS: 59812; 36415; 76830; 76856; 80048; 81003; 81015; 84702; 85014; 85018; 85025; 86850; 86900; 86901; 87635; 99283; 99284; C9803; J1100; J1885; J2250; J2405; J2704; J3010

== ENCOUNTER → 2023-10-20 14:47 | Outpatient (CLI) | payer OTHER, SELFPAY ==
[2023-10-20 21:53] LABS: Urine Chlamydia NOT DETECTED; Urine N gonorrhoeae NOT DETECTED
== END ==
PROVIDERS: Visit Provider Obstetrics & Gynecology
DX: Z34.01 Encounter for supervision of normal first pregnancy, first trimester (principal); Z11.3 Encounter for screening for infections with a predominantly sexual mode of transmission
CPT/HCPCS: 87491; 87591

== ENCOUNTER → 2023-11-21 10:12 | Outpatient (CLI) | payer OTHER, SELFPAY ==
[2023-11-21 11:10] LABS: Add Manual Diff / Slide Review NO; Basophils Absolute Auto 100 /uL (0-100); Basophils Percent Auto 0.7 % (0-2); Eosinophils Absolute Auto 2000 /uL (0-450); Eosinophils Percent Auto 20.4 % (2-4); Hemoglobin 11.8 g/dL (12.0-16.0); Lymphocytes Absolute Auto 2100 /uL (1100-4500); Lymphocytes Percent Auto 21.8 % (25-40); Mean Corpuscular HGB Conc 33.6 % (30-36); Mean Corpuscular Hemoglobin 25.6 PG (26-34); Mean Corpuscular Volume 76.2 fL (80-100); Monocytes Absolute Auto 700 /uL (0-900); Monocytes Percent Auto 6.9 % (3-14); Neutrophils Absolute Auto 4900 /uL (1500-7000); Neutrophils Percent Auto 50.2 % (50-75); Platelet Count 399 X10^3/uL (150-400); Red Blood Cell Count 4.59 X10^6/uL (4.0-5.2); Red Cell Distribution Width 16.4 % (11.6-14.8); White Blood Cell Count 9.8 X10^3/uL (4.5-11.0)
[2023-11-21 12:19] LABS: Hepatitis B Surface Antigen NEGATIVE s/c (NEGATIVE)
[2023-11-21 12:47] LABS: HIV 1 & 2 Ab/Ag 4th Gen Combo NEGATIVE (NEGATIVE); Hep C Virus Ab w/Reflex Quant NEGATIVE s/c (NEGATIVE)
[2023-11-22 11:09] LABS: Varicella IgG Antibody 1397 index (Immune >165)
[2023-11-23 09:04] LABS: RPR Screen Non Reactive (Non Reactive)
== END ==
PROVIDERS: Referring Provider Obstetrics & Gynecology; Visit Provider Obstetrics & Gynecology
DX: Z34.81 Encounter for supervision of other normal pregnancy, first trimester (principal)
CPT/HCPCS: 36415; 80055; 86787; 86803; 86850; 86900; 86901; 87086; 87389

== ENCOUNTER → 2024-01-16 10:23 | Outpatient (CLI) | payer OTHER, SELFPAY ==
[2024-01-20 22:04] LABS: AFP Value 41.5 ng/mL (.); Gest Age on Col Date 20.6 weeks (.); Gestational Age EDD (.); Insulin Dep Diabetes No (.); OSBR Risk 1IN 10000 (.); Results Report (.); Test Results *Screen Negative* (.)
== END ==
PROVIDERS: Referring Provider Student in an Organized Health Care Education/Training Program; Visit Provider Student in an Organized Health Care Education/Training Program
DX: Z34.82 Encounter for supervision of other normal pregnancy, second trimester (principal); Z3A.20 20 weeks gestation of pregnancy
CPT/HCPCS: 36415; 82105

== ENCOUNTER → 2024-01-22 12:08 | Outpatient (CLI) | payer OTHER, SELFPAY ==
--- NOTE | 2024-01-22 12:09 | DI.US.S_ITS ---
PROCEDURE: US OB >= 14 WEEKS FETUS INDICATIONS: 20 Week Anatomy Scan OUTSIDE/PRIOR DATING DATA: Last menstrual period (LMP): 08/25/2023. LMP-based estimated date of delivery (TORRI): 05/31/2024. First dating scan (date and location): 10/20/2023. Estimated date of delivery (TORRI) from first dating scan: 05/31/2024. The calculations are made using the working and ultrasound TORRI of 05/31/2024. TECHNIQUE: Real-time scanning was performed of the fetus, with image documentation and biometric measurements. Endovaginal scanning: Not performed COMPARISON: None. FINDINGS: General: A single living intrauterine gestation is present. Presentation: Transverse with head to maternal right. Placenta: Placental position is fundal , without previa. Amniotic fluid index: 16.2 cm, normal range is 5-24 cm. Single deepest vertical pocket is 4.9 cm. heart rate: 150 beats per minute. Maternal cervical canal: 5.2 cm long. Normal lower limit is 2.5 cm. biometrics: Biparietal diameter: 5.3 cm, 22 weeks 1 day Head circumference: 20.1 cm, 22 weeks 2 days Abdominal circumference: 17.7 cm, 22 weeks 4 days Femur length: 3.7 cm, 21 weeks 4 days Clinically estimated gestational age: 21 weeks 3 days Composite gestational age from present scan: 22 weeks 1 day Estimated weight and percentile: 479 g, 81st percentile Anatomic survey: Neuro: Ventricles are non-dilated at less than 10 mm. Cisterna magna is normal at 3-11 mm. Cerebellum is normal in size and morphology. Nuchal skin fold: Normal at less than 6 mm between 14-21 weeks gestational age. Face: Nose and lips, facial profile are normal. Spine: No evidence for spina bifida. Heart: 4-chambered heart is present, with normal ventricular outflow tracts. Diaphragm: Diaphragm is intact. Stomach: Left-sided stomach is present. Kidneys: No hydronephrosis. Normal is less than 5 mm in 2nd trimester, less than 7 mm in 3rd trimester. Cord: 3-vessel cord has orthotopic insertion. Bladder: Normal in size. Extremities: All 4 extremities identified. IMPRESSION: 1. Living 2nd trimester intrauterine with no sonographic evidence of complications. 2. Current ultrasound age is 5 days greater than clinical age based on LMP and initial ultrasound. 3. Normal 2nd trimester anatomy study. We strive to produce accurate, complete, and clear reports of imaging services. To assist us in improving patient care, this report was composed using standard report templates and voice recognition software. Therefore, it may contain abnormal punctuation, insertions and/or omissions. Occasional wrong-word or sound-alike substitutions may occur. Though we review the report and make efforts to correct it, we do recommend that the report be read carefully in proper context to recognize any text inaccuracies. Dictated by: Kanu Parikh M.D. on 01/22/2024 at 17:55 Approved by: Kanu Parikh M.D. on 01/22/2024 at 17:58
== END ==
PROVIDERS: Referring Provider Specialist; Visit Provider Specialist
DX: Z34.82 Encounter for supervision of other normal pregnancy, second trimester (principal); Z3A.22 22 weeks gestation of pregnancy
CPT/HCPCS: 76811

== ENCOUNTER 2024-02-14 16:52 | Observation (INO) | payer OTHER, SELFPAY ==
[2024-02-14 17:22] LABS: Appearance Urine UA CLEAR; Bilirubin Urine UA NEGATIVE (NEGATIVE); Color Urine UA YELLOW; Glucose Urine UA NEGATIVE (Negative); Ketones Urine UA NEGATIVE (NEGATIVE); Leukocyte Esterase Urine UA 1+ (NEGATIVE); Nitrite Urine UA NEGATIVE (Negative); Occult Blood Urine UA NEGATIVE (Negative); Protein Urine UA NEGATIVE (Negative); Urobilinogen Urine UA 0.2 E.U./dL (0.2)
[2024-02-14 17:32] LABS: Bacteria Urine Many (>30); RBC Urine None Seen (0-5/HPF); Urine Volume 10mL (spun); WBC Urine 1-5/HPF (0-5/HPF)
[2024-02-14 17:33] LABS: Culture Indicated Urine Specimen Cultured; Squamous Epithelial Cell Urine 5-10 /HPF (0-5/HPF)
== END 2024-02-14 19:20 | disposition home or self-care (01) ==
LOC: LABOR 16:54
PROVIDERS: Admitting Provider Student in an Organized Health Care Education/Training Program; PCP Nurse Practitioner Family; Referring Provider Student in an Organized Health Care Education/Training Program; Visit Provider Student in an Organized Health Care Education/Training Program
DX: O36.8120 Decreased fetal movements, second trimester, not applicable or unspecified (principal); Z3A.24 24 weeks gestation of pregnancy
CPT/HCPCS: 59025; 59050; 81001; 87086; G0378; G0379

== ENCOUNTER → 2024-03-12 10:06 | Outpatient (CLI) | payer OTHER, SELFPAY ==
[2024-03-12 12:14] LABS: Hematocrit 29.7 % (36-46); Hemoglobin 9.9 g/dL (12.0-16.0)
[2024-03-12 17:21] LABS: GTT (PREG) 1 Hour PP 50gm Dose 58 mg/dL (76-139)
== END ==
PROVIDERS: PCP Nurse Practitioner Family; Referring Provider Obstetrics & Gynecology; Visit Provider Obstetrics & Gynecology
DX: Z34.82 Encounter for supervision of other normal pregnancy, second trimester (principal); Z3A.26 26 weeks gestation of pregnancy
CPT/HCPCS: 36415; 82950; 85014; 85018

== ENCOUNTER → 2024-05-14 15:51 | Outpatient (CLI) | payer OTHER, SELFPAY ==
[2024-05-15 12:18] LABS: Strep Grp B PCR NEG for Grp B Strep
== END ==
PROVIDERS: PCP Nurse Practitioner Family; Visit Provider Obstetrics & Gynecology
DX: Z34.83 Encounter for supervision of other normal pregnancy, third trimester (principal); Z3A.37 37 weeks gestation of pregnancy
CPT/HCPCS: 87653

== ENCOUNTER 2024-05-27 07:08 | Inpatient (IN) | payer OTHER, SELFPAY ==
[2024-05-27 07:09] VITALS: BP 112/63
[2024-05-27] MEDS: LACTATED RINGERS 1,000 ML 100 ML IV ×2 (08:40→15:55)
[2024-05-27] MEDS: OXYTOCIN PREMIX 30 UNIT/500 ML PLAST..BAG IV (08:48)
--- NOTE | 2024-05-27 09:01 | PM.OBHP.IH.1 ---
OB HPI Date/Time Date of admission: 05/27/24 Date Patient Seen: 05/27/24 Time Patient Seen: 08:05 History of Present Condition Chief complaint: INDUCTION TORRI Calculator Estimated Delivery Date Method Current WG Current Estimate 05/31/24 Ultrasound #1 39w 3d Other Estimates 06/02/24 Conception 39w 1d : 4 Para: 1 care: good care, initiated at week # (0), number of visits (11) and pounds weight gain (52) Dating criteria OB: LMP confirmed by 1st trimester US Ultrasounds: normal 1st trimester US and normal mid trimester US Obstetrical complications: none Medical complications OB: none Indications Operative indications ( section): breech presentation Preadmission Labs Last OB Lab Results: Blood Type AB Positive 05/27/24 07:55 Antibody Screen Negative 05/27/24 07:55 Hct 34.1 % (36-46) L 05/27/24 07:55 Hgb 11.3 g/dL (12.0-16.0) L 05/27/24 07:55 Hep Bs Antigen Negative s/c (NEGATIVE) 11/21/23 10:28 Hepatitis C Antibody Negative s/c (NEGATIVE) 11/21/23 10:28 Rubella Antibody 101.0 IU/mL (>15) 11/21/23 10:28 VZV IgG Antibody 1397 index (Immune >165) 11/21/23 10:28 Glucose 1 Hr 50 gm 58 mg/dL (76-139) L 03/12/24 10:24 Group B Strep (PCR) Neg for grp b strep 05/14/24 15:45 -: Chlamydia screen: negative and Gonorrhea screen: negative -: PAP smear: Normal Genetic Screens: Cell-free DNA: Normal (normal male) and Alpha-fetoprotein: Normal Prior (ies) Past Pregnancies Del. Date GA/Weeks Labor Lgth Wt Sex Route Outcome Anesthesia Place Delv Breastfeed Preg Comp Name 08/31/14 12 elective 12/14/20 40.2 9 8 lb 3 oz Female vaginal live - full term [facility] [place] 7 months hemorrhage [place] 11/06/22 molar Delivery Date: 08/31/14 Last Updated by: Vira Hdez RN D&C, no complications Delivery Date: 11/06/22 Last Updated by: Vira Hdez RN Required D&C, HCG did not zero until late March Evaluation Evaluation Baseline heart rate: 130 Variability: Moderate (11-25) monitor accelerations: Present Monitor Decelerations: Absent Status: Category l Dilation (cm): 2 Effacement (%): 75 station: -2 Position of cervix: mid Consistency: medium [facility] Medical History (Updated 04/17/24 @ 22:58 by Veronica Moise MD) Incomplete miscarriage hemorrhage Complete molar Surgical History (Updated 10/14/23 @ 08:08 by Vira Hdez RN) [place] teeth extracted (~2019) H/O laparoscopy History of dilation and curettage (~2015) Family History (Updated 10/14/23 @ 08:11 by Vira Hdez RN) Mother Miltno's disease Grandmother Milton's disease Family/Other Down syndrome Aunt DVT (deep venous thrombosis) Social History marital status: number of children: 1 household members: spouse and children lives independently: Yes caregiver/support person: Yes [facility]) pets and animals: Yes (dogs & cat; aware of precautions) education level: high school occupational status: unemployed current occupational exposures/hazards: No special chasidy needs: No travel history: recent (local only (within 6 hours)) and over 6 months ago seatbelt use: always helmet use: Yes water heater temp set < 120 deg: Yes working smoke detector in home: Yes fire extinguisher in home: Yes carbon monox detector in home: Yes firearms in home: No do you feel safe at home: Yes Smoking Status: Never smoker second hand exposure: No ( quit with pt) alcohol intake: former (very rarely when not ) substance use type: does not use during the past year weight has: other (fluctuated 10-15 lb) well-balanced diet: about half the time daily servings fruits/ve-4 (usually 1 fruit and 1 veg) caffeine: Yes (AM cup coffee or small soft drink) Type(s) of exercise: walking frequency: daily duration: 15-30 minutes/day Meds Home Medications and Allergies Home Medications Medication Instructions Recorded Confirmed Type vitamin-ferrous sulfate tab PO 10/14/23 05/19/24 History 27 mg iron-folic acid 0.8 mg tablet Allergies Allergy/AdvReac Type Severity Reaction Status Date / Time cephalexin [From Keflex] Allergy Intermediate Hives Verified 05/19/24 09:18 OB Exam Narrative Exam Narrative: Gen: NAD FH: 41 cm EFW: 8 1/2 pounds Ext: trace edema Objective Labs 05/27/24 07:55 Assessment and Plan Assessment and Plan Assessment and Plan narrative: Assessment: 28 year old at 39+2 wks gestation for elective induction of labor Favorable cervix GBS neg Plan: Pitocin per protocol 2 Epidural prn Expectant management to Time-Based Coding :: [TOTAL MINUTES] spent with patient and on the chart (including review of chart, obtaining history, exam, reviewing outside data, placing orders, documenting exam and treatment plan, and counseling patient) on [DATE].
[2024-05-27 10:30] LABS: Add Manual Diff / Slide Review NO; Basophils Absolute Auto 0 /uL (0-100); Basophils Percent Auto 0.6 % (0-2); Eosinophils Absolute Auto 400 /uL (0-450); Eosinophils Percent Auto 4.8 % (2-4); Hematocrit 34.1 % (36-46); Hemoglobin 11.3 g/dL (12.0-16.0); Lymphocytes Absolute Auto 1900 /uL (1100-4500); Lymphocytes Percent Auto 22.5 % (25-40); Mean Corpuscular HGB Conc 33.2 % (30-36); Mean Corpuscular Volume 84.3 fL (80-100); Monocytes Absolute Auto 500 /uL (0-900); Monocytes Percent Auto 6.2 % (3-14); Neutrophils Absolute Auto 5600 /uL (1500-7000); Neutrophils Percent Auto 65.9 % (50-75); Platelet Count 287 X10^3/uL (150-400); Red Blood Cell Count 4.05 X10^6/uL (4.0-5.2); Red Cell Distribution Width 20.6 % (11.6-14.8); White Blood Cell Count 8.5 X10^3/uL (4.5-11.0)
[2024-05-27 11:08] LABS: Anisocytosis 1+; Platelet Estimate Adequate on smear
--- NOTE | 2024-05-27 13:20 | PM.OBPNLAB ---
Date/Time Date Patient Seen: 05/27/24 Time Patient Seen: 13:20 Pain Control Pain control: tolerating well Pelvic Exam Dilation (cm): 4 Effacement (%): 80 station: -2 Amniotic membrane status: Bulging Contractions Contractions on admission: irregular Monitor mode: External Pitocin rate (mU/min): 10 Contraction frequency (min): 3 Contraction duration (min): 1 Contraction pattern: Regular Contraction intensity: Moderate Status status: Category l Heart Rate Baseline: 125 Monitor Accelerations: Present Monitor Decelerations: Absent Monitor Variability: Moderate Assessment and Plan Assessment: induction ongoing Comments: AROM with copious clear amniotic fluid Epidural as needed [facility] [place] Expectant management to
--- NOTE | 2024-05-27 16:33 | PM.AN.REGBLK ---
[facility] <Zahira Rogel CRNA - Last Filed: 05/27/24 16:43> Pre-procedure Procedure: Continuous Lumbar Epidural for L&D Attending OB provider: Veronica Moise PMH/ROS narrative: 28 y/o with PMH of obesity and anemia in active labor requesting a ANNE for labor pain. PSH/Anesthesia history narrative: See pre-anesthesia evaluation form. ASA Class: III Labs: Hct 34.1 % (36-46) L 05/27/24 07:55 Plt Count 287 X10^3/uL (150-400) 05/27/24 07:55 Medications: Current Medications Generic Name Dose Route Start Last Admin Trade Name Freq PRN Reason Stop Dose Admin Calcium Carbonate 1,000 mg 05/27/24 08:18 Calcium Carbonate 500 Mg Tab PO Q2HR PRN Dyspepsia Carboprost Tromethamine 250 mcg 05/27/24 08:18 Carboprost 250 Mcg/Ml Ampul IM Q90M PRN Bleeding Diphenhydramine HCl 25 mg 05/27/24 16:30 Diphenhydramine 50 Mg/Ml Vial IV Q10M PRN Pruritis Ephedrine Sulfate 10 mg 05/27/24 16:30 Ephedrine 50 Mg/Ml Vial IV Q5M PRN Blood pressure decrease more than 20% of baseline. Fentanyl 50 mcg 05/27/24 08:18 Fentanyl 100 Mcg/2 Ml Inj IV Q1H PRN Pain, Moderate (4-6) Lactated Ringer's 1,000 mls @ 100 mls/hr 05/27/24 08:30 05/27/24 15:55 Lactated Ringers IV 05/27/24 18:29 100 mls/hr CONT RUPALI Administration Tranexamic Acid 1,000 mg/ 100 mls @ 600 mls/hr 05/27/24 08:18 Sodium Chloride IV NOW PRN Bleeding Oxytocin/Lactated Ringer's 30 unit in 500 mls @ 2 mls/hr 05/27/24 08:30 05/27/24 08:48 Oxytocin Premix IV 2 milliunit/min TITRATE RUPALI 2 mls/hr Administration Protocol 2 MILLIUNIT/MIN Oxytocin/Lactated Ringer's 30 unit in 500 mls @ 200 mls/hr 05/27/24 08:18 Oxytocin Premix IV CONT PRN Bleeding Protocol FENT 2MCG/ML BUPIV 0.125% EPI 200 mcg in 100 mls @ 8 mls/hr 05/27/24 15:31 Fentanyl/Bupiv/Ns 2mcg/Ml - 0.125% EPIDURAL CONT RUPALI Lidocaine HCl 20 ml 05/27/24 08:18 Lidocaine 1% 20 Ml INJ INTRA-OP PRN Post Delivery Methylergonovine Maleate 0.2 mg 05/27/24 08:18 Methylergonovine 0.2 Mg Tablet PO Q6HR PRN Heavy Bleeding Methylergonovine Maleate 0.2 mg 05/27/24 08:18 Methylergonovine 0.2 Mg/Ml Vial IM NOW PRN Bleeding Mineral Oil 30 ml 05/27/24 08:18 Mineral Oil 30 Ml Udc TOP PRN PRN Version Misoprostol 400 mcg 05/27/24 08:18 Misoprostol 200 Mcg Tablet SL NOW PRN Bleeding Misoprostol 800 mcg 05/27/24 08:18 Misoprostol 200 Mcg Tablet NM NOW PRN Bleeding Naloxone HCl 0.2 mg 05/27/24 08:18 Naloxone 0.4 Mg/Ml Vial IV Q2MIN PRN Opiate Reversal Ondansetron HCl 4 mg 05/27/24 08:18 Ondansetron 4 Mg/2 Ml Inj IV Q4HR PRN Nausea And Vomiting Oxytocin 10 unit 05/27/24 08:18 Oxytocin 10 Unit/Ml Vial IM NOW PRN Bleeding Allergies: Allergies Allergy/AdvReac Type Severity Reaction Status Date / Time cephalexin [From Keflex] Allergy Intermediate Hives Verified 05/19/24 09:18 Procedure Insertion date: 05/27/24 Insertion time: 15:30 Prep/Local: 1% lidocaine (5mL in interspace. CHG used for skin prep.) Interspace: L3/4. (Initial attempt at L4/L5 w/o clear DAGO. Repeated at L3/4.) Patient position: sitting Needle: 18 gauge Nay Loss of resistance with: saline DAGO at (cm): 5 Catheter placed at SKIN (cm): 12 Catheter in SPACE (cm): 7 Insertion: No CSF, No Blood, Yes Paresthesia with insertion, No Paresthesia with injection and No Test dose reaction Initial Medications TEST DOSE time: 15:31 TEST DOSE: 1.5% lidocaine with epinephrine 1:200k (mL): 3 BOLUS DOSE time: 15:34 BOLUS DOSE (mL): 5 BOLUS DOSE med: other (Lidocaine 2%) Infusion INFUSION: 0.125% bupivacaine and with fentanyl 2 mcg/mL Initial rate (mL/hr): 8 Subsequent interventions: Pt initially reporting pain relief from bolus given via epidural, however @ 1620 reported increased pain. 1630 Bolus dose of 5mL Lido 2%, repeated at 1635 - no hypotension, no decrease in pain. Decision made to replace epidural. -AB Post-procedure Anesthesia date START: 05/27/24 Anesthesia time START: 15:15 <Jomar Casper DO - Last Filed: 05/27/24 19:59> Infusion Subsequent interventions: Pt initially reporting pain relief from bolus given via epidural, however @ 1620 reported increased pain. 1630 Bolus dose of 5mL Lido 2%, repeated at 1635 - no hypotension, no decrease in pain. Decision made to replace epidural. -AB 1700 epidural replaced. Seated, sterile prep/drape, lido local L34, DAGO saline at 7cm, CSE 27g Pencan through [place], clear CSF, 1ml 0.25% bupiv MPF, catheter to 14 (7cm in space). Infusion restarted at 10, bolus 5mL given at 1707. -RC 1730 baby breech. CS called. lido 2% to epidural 5+5+5 for T4 block, to OR. - Post-procedure Anesthesia date END: 05/27/24 Anesthesia time END: 18:11 Post-procedure Anesthesia Assessment: Yes CV function: HR/BP stable, Yes Resp function: RR/sat/airway adequate, Yes Post-op hydration adequate, Yes Pain control adequate, Yes Nausea & vomiting absent, Yes Temperature > 36 C, Yes Mental status appropriate and No Anesthesia complications
--- NOTE | 2024-05-27 17:50 | PM.OBPNLAB ---
Date/Time Date Patient Seen: 05/27/24 Time Patient Seen: 17:50 Pelvic Exam Dilation (cm): 4 Effacement (%): 80 station: -2 Amniotic membrane status: Ruptured Comments: Feel a foot Contractions Contractions on admission: irregular Monitor mode: External Pitocin rate (mU/min): 0 Contraction frequency (min): 3 Contraction pattern: Regular Contraction intensity: Moderate Status status: Category l Heart Rate Baseline: 130 Monitor Accelerations: Present Monitor Decelerations: Absent Monitor Variability: Moderate Assessment and Plan Assessment: induction ongoing Comments: Assessment: Breech Plan: Primary C section The risks, benefits, alternatives were explained to the patient. The risks including bleeding, infection, injury to the bowel, bladder, or ureters. She understands these risks and agrees to proceed. A full par Q was held and consent form was signed.
[2024-05-27] MEDS: AZITHROMYCIN 500 MG in DEXTROSE 5% IN WATER 250 ML 250 MG IV (18:21)
--- NOTE | 2024-05-27 18:21 | PM.PREOP ---
Pre-operative Note Interval Note History & Physical reviewed/Exam performed by Physician: Yes Changes to H&P: No H&P completed within 30 days and has changed as indicated here:: 05/27/24
[2024-05-27] MEDS: CLINDAMYCIN 900 MG/50 ML PIGGYBACK 50 MG IV (18:33)
--- NOTE | 2024-05-27 18:38 | SUR.OPER ---
Supine on Padded OR bed, head on pillow, safety belt at thigh, arms secured on padded arm boards at <90 degrees abduction. Bump under right buttock. Legs uncrossed with pillow under knees, gel pad to heels, tape over blanket to lower legs.
--- NOTE | 2024-05-27 19:00 | SUR.OPER ---
viable baby boy born at 184, heart tones prior to case at 140, placenta delivered at 184, 7/9, cord blood and placenta given to OB RN
[2024-05-27] MEDS: ACETAMINOPHEN IV 1,000 MG/100 ML VIAL 400 MG IV (19:09)
[2024-05-27 19:36] VITALS: BP 97/77; PULSE 81; RESP 16; TEMP 36.6; O2SAT 94
[2024-05-27 19:39] VITALS: BP 113/44; PULSE 77; RESP 17; O2SAT 98
--- NOTE | 2024-05-27 19:39 | PM.OBCS.1 ---
Operative Date/Time/Diagnoses Date of procedure: 05/27/24 Time of procedure: 19:39 Pre-op diagnosis: Breech presentation in labor Post-op diagnosis: same Procedure & Clinicians Same procedure as scheduled: Yes Indications: 28-year-old 4 para 1 at 39-,2/7 weeks gestation who was brought in for induction of labor due to 's deployment. Artificial rupture of membranes was performed at 3:00 a.m. in the afternoon with vertex presentation. At 5:30 a.m. upon check of the cervix the presenting part could not be palpated. Her bladder was emptied of a 1000+ cc of clear yellow urine. A repeat vaginal exam was done and a foot was palpated. Ultrasound confirmed breech presentation. Surgeon: Veronica Moise Click Yes if Unassisted: No Instructional Media Services Technician: Román Lopez Reason for Instructional Media Services Technician: The music assistant was necessary to retract upon entry into the abdomen and uterus. He assisted with delivery of the with fundal pressure. He assisted with closure with retraction, clipping of suture, and closure of the contralateral fascia. Anesthesia Type: Epidural (with Duramorph) Operative Notes Findings: Live male in the ashely breech presentation Normal tubes and ovaries Normal uterus Very thin cord Cord draped over the baby's shoulder Closure Type: primary Specimen(s): cord blood and placenta Intraoperative meds administered: Acetaminophen, Duramorph, Ketorolac and Pitocin Applied: Catheter (to continuous drainage) Estimated Blood Loss (mL): 600 Blood products transfused: none Procedure in detail: The patient was taken to the operating room where she was placed in the dorsal supine position with a leftward tilt. She was prepped and draped in the usual sterile fashion. A timeout was performed. After spinal analgesia was found to be adequate, a Pfannenstiel skin incision was made 2 fingerbreadths above the pubic symphysis and carried through to the underlying layer fascia. The fascia was nicked in the midline, and the incision extended bilaterally with the Gambino scissors. The superior aspect of the fascial incision was grasped with a [place] clamps, elevated, and the underlying rectus muscles dissected off sharply and bluntly. Attention was then turned to the inferior aspect of this incision which in a similar fashion was grasped with a Edgar clamps, elevated, and the underlying rectus muscles dissected off sharply and bluntly. The rectus muscles were in the midline. The peritoneum was identified, grasped between 2 hemostats, and entered sharply with the Metzenbaum scissors. This incision was extended superiorly and inferiorly with good visualization of the bladder. The bladder blade was inserted. The vesicouterine peritoneum was identified, grasped with the pickup, and entered sharply with the Metzenbaum scissors. This incision was extended bilaterally, and the bladder flap was created digitally. The bladder blade was reinserted. The lower uterine segment was incised in a transverse fashion with the scalpel. Upon entering the amniotic sac there was a small amount of clear amniotic fluid. The was delivered by total breech extraction by grasping the feet and then delivering to the shoulders. The remainder of the body delivered by total breech extraction with a finger in the mouth to keep the head flexed. The nose and mouth were suctioned with bulb suction. The cord was double clamped and cut after 1 minute. The was handed off to waiting RN and RT. cord bloods were obtained. The placenta was delivered manually. The uterus was cleared of all clots and debris. The uterine incision was repaired with #1 chromic in a running interlocking fashion, and a second layer the same suture was used for an imbricating layer. Hemostasis was achieved. The tubes and ovaries were examined and were found to be normal. The gutters were cleared of all clots and debris. The parietal peritoneum was closed using 2-0 Vicryl in a running fashion. The fascia was reapproximated using 0 Vicryl in a running fashion. The subcutaneous layer was copiously irrigated with warm normal saline. 5 simple interrupted sutures of 3-0 Vicryl were placed to reapproximate the subcutaneous layer. The skin was closed with 4-0 monocryl in a subcuticular fashion. Steri-Strips were placed. An Aquacel dressing was placed. The uterus was expressed of a small amount of old blood. Sponge, lap, and instrument counts were correct x 2. The patient tolerated the procedure well, and was taken to PACU in stable condition. Complications: none [place] Baby 1: Gender: Male Presentation: breech Details: ashely Placental Delivery Description: Manual Removal Cord Vessel Description: 3 Vessels (very thin) and Around Body x1 (shoulder) score (1 min): 7 score (5 min): 9 weight: 7 lb 11 oz Post-operative Condition: stable Disposition: PACU Aftercare: routine postop
[2024-05-27 19:46] VITALS: BP 102/44; PULSE 74; RESP 14; O2SAT 98
[2024-05-27] MEDS: MEPERIDINE 50 MG/ML INJ 12.5 MG IV (19:47)
[2024-05-27 19:50] VITALS: BP 107/54; PULSE 81; RESP 16; TEMP 36.5; O2SAT 98
[2024-05-28] MEDS: ACETAMINOPHEN 325 MG TABLET 650 MG PO ×2 (04:15→10:59)
[2024-05-28 06:35] LABS: Add Manual Diff / Slide Review NO; Basophils Absolute Auto 100 /uL (0-100); Basophils Percent Auto 0.6 % (0-2); Eosinophils Absolute Auto 300 /uL (0-450); Eosinophils Percent Auto 2.8 % (2-4); Hematocrit 30.2 % (36-46); Hemoglobin 10.3 g/dL (12.0-16.0); Lymphocytes Absolute Auto 2300 /uL (1100-4500); Lymphocytes Percent Auto 24.1 % (25-40); Mean Corpuscular HGB Conc 33.9 % (30-36); Mean Corpuscular Hemoglobin 28.3 PG (26-34); Mean Corpuscular Volume 83.3 fL (80-100); Monocytes Absolute Auto 500 /uL (0-900); Neutrophils Absolute Auto 6400 /uL (1500-7000); Neutrophils Percent Auto 67.5 % (50-75); Platelet Count 250 X10^3/uL (150-400); Red Blood Cell Count 3.62 X10^6/uL (4.0-5.2); Red Cell Distribution Width 20.5 % (11.6-14.8); White Blood Cell Count 9.5 X10^3/uL (4.5-11.0)
[2024-05-28] MEDS: KETOROLAC 30 MG/ML VIAL IV ×2 (06:41→13:08)
[2024-05-28 06:55] LABS: Anisocytosis 1+; Microcytosis 1+; Platelet Estimate Adequate on smear
[2024-05-28] MEDS: PRENATAL VIT,CALC/IRON/FOLIC 1 TABLET 1 TAB PO (08:42)
[2024-05-28] MEDS: IRON SUCROSE 300 MG in SODIUM CHLORIDE 0.9% 250 ML 176.667 MG IV (08:42)
[2024-05-28] MEDS: DOCUSATE 100 MG CAPSULE PO (08:42)
--- NOTE | 2024-05-30 15:39 | PM.OBDS.1 ---
Discharge Providers Provider Date of admission: 05/27/24 07:08 Discharge Date: 05/28/24 Primary care physician: TARA Felix Consults: 05/27/24 08:18 Consult to Anesthesiology Urgent Comment: Consulting Provider: Anesthesiologist Reason for consultation: Epidural Has provider been notified: No 05/27/24 22:41 Consult to Mental Health Consultant Routine Comment: Discharge provider: Veronica Moise MD Summary Hospital Course Date Patient Seen: 05/28/24 Time Patient Seen: 15:00 Diagnoses: 39+2 weeks gestation Induction of labor Breech presentation in labor Primary low transverse C section Hospital Course: Patient is a 28 year old who presented on 05/27/24 for Pitocin induction of labor. Her cervix was favorable. She had AROM with copious clear amniotic fluid at 1500. She received an epidural for pain management. This had to be redone after inadequate coverage. Upon recheck of the cervix, a presenting part could not be palpated. The bladder was emptied. A recheck of the cervix revealed a foot. This was confirmed by ultrasound. A primary C section was performed without complication. On POD#1, the patient was voiding without the catheter, tolerating oral intake, no nausea or vomiting, pain well controlled and ambulating without assistance. was going well. Patient requested discharge. She was discharged to home to follow up in 1 week. Peripartum Data Infant Delivery Method: Section (unplanned) Procedures: Epidural anesthesia Primary low transverse C section Pitocin induction of labor Artificial rupture of membranes complications: none [place] 1: Gender: Male Disposition of : home Status at Discharge Cognitive/behavioral status at discharge: oriented Functional status at discharge: independent ambulation Overall status at discharge: patient is progressing back to baseline Time Spent with Patient Time attestation: Total time spent providing and/or coordinating discharge services: Time spent: Less than 30 minutes Objective Labs 05/28/24 06:16 Exam Vital Signs (past 8 hours): Oxygen Delivery Method Room Air Narrative Exam Narrative: Gen: Patient walking in room, NAD Lungs: CTA bilat CV: RRR Abd: Soft, appropriately tender Fundus: Firm U/-1 Ext: Trace edema Discharge Plan Discharge Plan Patient Disposition: Home Provider Discharge Comment: Call with fever, chills, redness or drainage around the incision or bleedng vaginally more than a pad in an hour Tylenol 650mg every 6 hours as needed Ibuprofen 600mg every 6 hours as needed Push oral fluids Discharge orders & Medications Prescriptions: New oxycodone 5 mg tablet 5 mg PO Q6H PRN (Reason: pain) Qty: 10 0RF Continued vit-ferrous sulfat-FA 27 mg iron- 0.8 mg tablet PO Follow up/Referrals: Veronica Moise MD [Physician] - 1 Week (Please follow up with Dr. Moise for a one week incision check on , June 03 @1200. Please follow up with Dr. Angel for a 6 week check-up on July 07 @ 1100. ) Diet/Activity/Treatments Diet: Regular Activity: No heavy lifting Skin/Wound/Dressing Care Report to your healthcare provider any signs of infection, such as:: chills, fever, increased pain, unusual drainage and unusual redness Dressing: Do not remove Visit Report/Discharge Packet Instructions: Depression, Hemorrhage, DI for , DI for Prescription Opioid Use Stand Alone Forms: Discharge: Care, Patient Portal/API, Stroke Signs & Symptoms Discharge Data Primary Care Provider: Anjali Jensen
== END 2024-05-28 16:50 | disposition home or self-care (01) | DRG 788 ==
PROVIDERS: Admitting Provider Obstetrics & Gynecology; PCP Nurse Practitioner Family; Referring Provider Obstetrics & Gynecology; Visit Provider Obstetrics & Gynecology
PROC: 10D00Z1 Extraction of Products of Conception, Low, Open Approach (ICD-10-PCS; CPT 59514; principal; 2024-05-27 19:15)
DX: O32.8XX0 Maternal care for other malpresentation of fetus, not applicable or unspecified (principal); Z3A.39 39 weeks gestation of pregnancy; Z37.0 Single live birth
CPT/HCPCS: 36415; 85025; 86850; 86900; 86901; G0379; J0136; J1756; J1885; J2175; J2274; J2405; J2590; J2704